=== PATIENT | female | born 1980 | race Two or more races ===

== ENCOUNTER 2025-05-01 14:04 | Emergency (ER) | payer OTHER ==
[~2025-05-01] VITALS: Ht 157.5 cm; Wt 46.7 kg
[2025-05-01 14:24] VITALS: BP 130/88; O2SAT 97
[2025-05-01] MEDS ORDERED: NEURONTIN300 MG PO (14:25)
[2025-05-01] MEDS ORDERED: DULOXETINE HCL40 MG (14:26)
[2025-05-01] MEDS ORDERED: AMBIEN CR6.25 MG (14:27)
[2025-05-01] MEDS ORDERED: ALPRAZOLAM2 M1 PO (14:27)
[2025-05-01] MEDS ORDERED: PERCOCET 5-3251 EACH (14:27)
[2025-05-01] MEDS ORDERED: MEGESTROL ACETA40 MG PO (14:27)
[2025-05-01] MEDS ORDERED: FLURANDRENOLIDE TP (14:28)
[2025-05-01] MEDS ORDERED: PEPCID AC20 MG (14:28)
[2025-05-01] MEDS ORDERED: 0.9 % SODIUM CHLORIDE 1,000 ML IV ONE (15:30)
[2025-05-01] MEDS ORDERED: ONDANSETRON HCL 2 MG/ML VIAL IV ONE (15:30)
[2025-05-01] MEDS ORDERED: FAMOTIDINE/PF 20 MG/2 ML VIAL IV ONE (15:30)
[2025-05-01] MEDS ORDERED: MORPHINE SULFATE 4 MG/ML VIAL IV ONE (15:45)
[2025-05-01] MEDS ORDERED: ONDANSETRON HCL 2 MG/ML VIAL ONE (16:06)
[2025-05-01] MEDS ORDERED: FAMOTIDINE/PF 20 MG/2 ML VIAL ONE (16:07)
[2025-05-01 16:17] LABS: BASO % 0.2 % (0.1-1.2); EOS # 0.01 (0.04-0.54); EOS % 0.2 % (0.7-7.0); LYMPH # 0.96 (1.18-3.74); LYMPH % 17.5 % (19.3-53.1); MEAN PLATELET VOLUME 11.80 fl (9.4-12.4); MONO # 0.37 (0.24-0.82); MONO % 6.7 % (4.7-12.5); NEUT # 4.14 (1.56-6.13); NEUT % 75.2 % (34.0-71.1); RED CELL DISTRIBUTION WIDTH 12.7 % (11.6-14.4)
[2025-05-01 16:20] LABS: COVID-19 AG NEGATIVE (NEGATIVE)
[2025-05-01 16:42] LABS: ALT/SGPT 12.0 U/L (12-78); AST/SGOT 12.0 U/L (15-37); BILIRUBIN TOTAL 0.64 mg/dL (0.3-1.2); BUN CREA RATIO 4.0 (7.0-25.0); CREATININE SERUM 0.79 mg/dL (0.55-1.02); GFR 79.43; GLOBULINA 4.0 G/DL (2.4-3.5); GLUCOSE FASTING 90.0 mg/dL (65-100); OSMOLALITY SERUM 274.0 MOSM/KG (275-295)
[2025-05-01 18:07] LABS: URINE APPEARANCE Clear; URINE BILIRRUBIN Negative (NEGATIVE); URINE BLOOD Negative; URINE COLOR Yellow; URINE GLUCOSE Negative (NEGATIVE); URINE KETONE Trace (NEGATIVE); URINE LEUKOCYTE Negative; URINE NITRATE Negative; URINE PROTEIN Negative (NEGATIVE); URINE UROBILINOGEN 0.2 E.U./dl
[2025-05-01 18:49] LABS: URINE EPITHELIAL CELLS 6.7 uL (0.0-38.8); URINE RBC 1.0 uL (0.0-20.8); URINE WBC 8.9 uL (0.0-23.2)
[2025-05-01 18:50] LABS: URINE BACTERIA 135.5 uL (0.0-1933); URINE CAST 0.14 uL (0.0-1.40)
[2025-05-01] MEDS ORDERED: ONDANSETRON ODT8 MG SL (20:01)
[2025-05-01] MEDS ORDERED: PEPCID AC20 MG PO (20:01)
== END 2025-05-01 21:59 ==
LOC: ER 14:04
PROVIDERS: General Practice
DX: R10.84 Generalized abdominal pain (principal); D25.9 Leiomyoma of uterus, unspecified; N88.8 Other specified noninflammatory disorders of cervix uteri; Z85.3 Personal history of malignant neoplasm of breast; Z20.822 Contact with and (suspected) exposure to COVID-19

== ENCOUNTER 2025-05-14 18:55 | Inpatient (IN) | payer OTHER ==
[~2025-05-14] VITALS: Ht 157.5 cm; Wt 45.8 kg
[~2025-05-14 18:55] MED LIST: ALPRAZOLAM2 M1 PO; AMBIEN CR6.25 MG; DULOXETINE HCL40 MG; FLURANDRENOLIDE TP; MEGESTROL ACETA40 MG PO; NEURONTIN300 MG PO; ONDANSETRON ODT8 MG SL; PEPCID AC20 MG; PEPCID AC20 MG PO; PERCOCET 5-3251 EACH
--- NOTE | 2025-05-14 19:54 | NUR ---
PACIENTE ALERTA Y ORIENTADA X 3. REFIERE 3 MUJICA CON DOLOR ABDOMINAL, VOMITOS Y DIARREAS. REFIERE SER PACIENTE DE CANCER DE SENO IZQ Y ESTA EN ESPERA DE BIOPSIA PELVICA. HOY VOMITOS X6 Y DIARREAS X 4.
[2025-05-14] MEDS ORDERED: 0.9 % SODIUM CHLORIDE 1,000 ML IV STA (20:32)
[2025-05-14] MEDS ORDERED: HALOPERIDOL LACTATE 5 MG/ML AMPUL IM STA (20:33)
[2025-05-14] MEDS ORDERED: FAMOtidine 10 MG/ML (4ML VIAL) IV PUSH STA (20:33)
[2025-05-14] MEDS ORDERED: DIPHENHYDRAMINE HCL 50 MG/ML VIAL 1ML IM STA (20:34)
[2025-05-14] MEDS ORDERED: DIPHENHYDRAMINE HCL 50 MG/ML VIAL 1ML ONE (21:00)
[2025-05-14] MEDS ORDERED: HALOPERIDOL LACTATE 5 MG/ML AMPUL ONE (21:00)
[2025-05-14] MEDS ORDERED: FAMOTIDINE/PF 20 MG/2 ML VIAL ONE (21:01)
--- NOTE | 2025-05-14 21:17 | NUR ---
SE ORIENTA A PACIENTE SOBRE TX MEDICO, REFIERE ENTENDER. SE REALIZAN MUESTRAS DE LABORATORIO BAJO MEDIDAS ASEPTICAS. SE ADMINISTRAN MEDICAMENTOS MEGHAN ORDEN MEDICA. PENDIENTE RE-EVALUACION MEDICA.
[2025-05-14 21:29] LABS: BASO % 0.1 % (0.1-1.2); EOS # 0.01 (0.04-0.54); EOS % 0.1 % (0.7-7.0); LYMPH # 0.88 (1.18-3.74); LYMPH % 12.8 % (19.3-53.1); MEAN PLATELET VOLUME 11.40 fl (9.4-12.4); MONO # 1.01 (0.24-0.82); MONO % 14.7 % (4.7-12.5); NEUT # 4.96 (1.56-6.13); NEUT % 72.0 % (34.0-71.1); RED CELL DISTRIBUTION WIDTH 11.7 % (11.6-14.4)
[2025-05-14 21:37] LABS: INR 1.08
[2025-05-14 21:47] LABS: ALT/SGPT 17.0 U/L (12-78); AST/SGOT 18.0 U/L (15-37); BILIRUBIN TOTAL 1.09 mg/dL (0.3-1.2); BUN CREA RATIO 9.0 (7.0-25.0); CREATININE SERUM 0.55 mg/dL (0.55-1.02); GFR 120.63; GLOBULINA 3.5 G/DL (2.4-3.5); GLUCOSE FASTING 80.0 mg/dL (65-100); OSMOLALITY SERUM 240.0 MOSM/KG (275-295)
[2025-05-14 21:52] LABS: URINE APPEARANCE Clear; URINE BILIRRUBIN Negative (NEGATIVE); URINE BLOOD Trace; URINE COLOR Yellow; URINE GLUCOSE Negative (NEGATIVE); URINE LEUKOCYTE Negative; URINE NITRATE Negative; URINE PROTEIN Negative (NEGATIVE); URINE UROBILINOGEN 0.2 E.U./dl
[2025-05-14 21:56] LABS: URINE BACTERIA 964.7 uL (0.0-1933); URINE EPITHELIAL CELLS 32.7 uL (0.0-38.8); URINE RBC 4.6 uL (0.0-20.8); URINE WBC 15.9 uL (0.0-23.2)
[2025-05-14 22:01] LABS: URINE CAST 0.00 uL (0.0-1.40); URINE KETONE 40 (NEGATIVE)
--- NOTE | 2025-05-15 10:34 | NUR ---
DR. MCGHEE VA A BRINDAR REEVALUACION A PACIENTE Y BLAS NO SE ENCUENTRA EN LA INSTITUCION. SE PROCEDE A LLAMAR A PACIENTE VIA TELEFONO Y BLAS NO RESPONDE. SE PROCEDE A LLAMAR AL CUARTER DE LOIZA Y LOS MISMOS [employer] COMPROMETERSE CON PASAR POR [facility]ION [facility] PARA REALIZAR LA INVESTIGACION.
[2025-05-15] MEDS ORDERED: FAMOTIDINE/PF 20 MG in 0.9 % SODIUM CHLORIDE 8 ML IV PUSH SCH (11:21)
[2025-05-15] MEDS ORDERED: 0.9 % SODIUM CHLORIDE 1,000 ML IV SCH (11:30)
[2025-05-15] MEDS ORDERED: ONDANSETRON HCL 4 MG in 0.9 % SODIUM CHLORIDE 50 ML IV PRN (11:30)
[2025-05-15] MEDS ORDERED: ACETAMINOPHEN 500 MG GEL..CAP PO PRN (11:30)
[2025-05-15 12:52] VITALS: BP 106/89; O2SAT 97
[2025-05-15 13:01] LABS: COVID-19 AG NEGATIVE (NEGATIVE)
[2025-05-15] MEDS ORDERED: DIPHENHYDRAMINE HCL 50 MG/ML VIAL 1ML IV ONE (14:30)
[2025-05-15] MEDS ORDERED: METHYLPREDNISOLONE SOD SUCC 125 MG VIAL IV ONE (14:30)
[2025-05-15 14:42] VITALS: BP 12/84; O2SAT 98
[2025-05-15] MEDS ORDERED: OxyCODONE HCL 5 MG TABLET (ROXICODONE) PO ONE (16:00)
[2025-05-15 16:02] VITALS: BP 136/78; O2SAT 99
[2025-05-15 17:03] VITALS: BP 113/72; O2SAT 97
[2025-05-16 03:02] VITALS: BP 119/72; O2SAT 97
[2025-05-16 07:02] LABS: BUN CREA RATIO 8.0 (7.0-25.0); CREATININE SERUM 0.59 mg/dL (0.55-1.02); GFR 111.24; OSMOLALITY SERUM 268.0 MOSM/KG (275-295)
[2025-05-16 07:38] LABS: GLUCOSE FASTING 50.0 mg/dL (65-100)
[2025-05-16 08:42] VITALS: BP 123/80; O2SAT 96
[2025-05-16] MEDS ORDERED: POTASSIUM CHLORIDE IN WATER 40 MEQ/100 ML PIGGYBAG IV NR (11:30)
[2025-05-16 17:44] VITALS: BP 118/70; O2SAT 97
[2025-05-17 02:50] VITALS: BP 116/75
[2025-05-17 09:09] VITALS: BP 117/75; O2SAT 98
[2025-05-17] MEDS ORDERED: INSULIN LISPRO 1,000 UNIT/10 ML UNITS SUBCUTANEO PRN (11:30)
[2025-05-17] MEDS ORDERED: DEXTROSE 50 % IN WATER 0.5 G/ML VIAL IV PRN (11:30)
[2025-05-17 18:11] VITALS: BP 130/85; O2SAT 100
[2025-05-17] MEDS ORDERED: FAMOTIDINE/PF 20 MG in 0.9 % SODIUM CHLORIDE 8 ML IV PUSH SCH (21:00)
[2025-05-17] MEDS ORDERED: ZOLPIDEM TARTRATE 10 MG TABLET PO STA (22:58)
[2025-05-18 03:35] VITALS: BP 118/82; O2SAT 100
[2025-05-18 07:23] LABS: BASO % 0.2 % (0.1-1.2); EOS # 0.05 (0.04-0.54); EOS % 1.0 % (0.7-7.0); LYMPH # 1.30 (1.18-3.74); LYMPH % 25.3 % (19.3-53.1); MEAN PLATELET VOLUME 11.70 fl (9.4-12.4); MONO # 0.75 (0.24-0.82); NEUT # 3.00 (1.56-6.13); NEUT % 58.5 % (34.0-71.1); RED CELL DISTRIBUTION WIDTH 12.7 % (11.6-14.4)
[2025-05-18 07:32] LABS: MONO % 14.6 % (4.7-12.5)
[2025-05-18 07:34] LABS: ALT/SGPT 25 U/L (12-78); AST/SGOT 40 U/L (15-37); BILIRUBIN TOTAL 0.79 mg/dL (0.3-1.2); CREATININE SERUM 0.56 mg/dL (0.55-1.02); GFR 118.15; GLOBULINA 3.0 G/DL (2.4-3.5); GLUCOSE FASTING 65 mg/dL (65-100)
[2025-05-18 07:45] LABS: BUN CREA RATIO 2 (7.0-25.0); OSMOLALITY SERUM 273 MOSM/KG (275-295)
[2025-05-18 09:14] VITALS: BP 113/77
[2025-05-18 16:19] VITALS: BP 125/78; O2SAT 99
[2025-05-18] MEDS ORDERED: ZOLPIDEM TARTRATE 10 MG TABLET PO SCH (21:00)
[2025-05-19 05:45] VITALS: BP 118/78; O2SAT 99
[2025-05-19 10:05] VITALS: BP 106/71
[2025-05-19 18:30] VITALS: BP 121/83
[2025-05-20 00:45] VITALS: BP 103/68; O2SAT 98
[2025-05-20 07:21] LABS: BUN CREA RATIO 8.0 (7.0-25.0); CREATININE SERUM 0.61 mg/dL (0.55-1.02); GFR 107.05; GLUCOSE FASTING 81.0 mg/dL (65-100); OSMOLALITY SERUM 281.0 MOSM/KG (275-295); T4 TOTAL 5.35 UG/DL (4.8-13.9); TSH 0.906 uIU/mL (0.358-3.74)
[2025-05-20 08:00] VITALS: BP 116/79; O2SAT 100
== END 2025-05-20 17:44 | DRG 71 ==
LOC: ER 18:55 → SEC-K 05-15 11:22 → MEDI 05-15 11:22
PROVIDERS: General Practice; Internal Medicine; Internal Medicine Endocrinology, Diabetes & Metabolism; ADMIT Internal Medicine; ATTEND Internal Medicine
PROC: BW21ZZZ Computerized Tomography (CT Scan) of Abdomen and Pelvis (ICD-10-PCS; principal; 2025-05-15)
PROC: BW28ZZZ Computerized Tomography (CT Scan) of Head (ICD-10-PCS; 2025-05-15)
DX: G93.41 Metabolic encephalopathy (principal); E87.1 Hypo-osmolality and hyponatremia; Z68.1 Body mass index [BMI] 19.9 or less, adult; R63.0 Anorexia; Z85.43 Personal history of malignant neoplasm of ovary; Z85.3 Personal history of malignant neoplasm of breast; F41.1 Generalized anxiety disorder

== ENCOUNTER 2025-07-04 06:25 | Emergency (ER) | payer OTHER ==
[~2025-07-04] VITALS: Ht 157.5 cm; Wt 48.1 kg
[2025-07-04] MEDS ORDERED: 0.9 % SODIUM CHLORIDE 1,000 ML IV STA (08:29)
[2025-07-04 09:46] LABS: URINE APPEARANCE Clear; URINE BILIRRUBIN Negative (NEGATIVE); URINE BLOOD Moderate; URINE COLOR Yellow; URINE GLUCOSE Negative (NEGATIVE); URINE KETONE Negative (NEGATIVE); URINE LEUKOCYTE Large; URINE NITRATE Negative; URINE PROTEIN Negative (NEGATIVE); URINE UROBILINOGEN 1.0 E.U./dl
[2025-07-04 09:50] LABS: URINE BACTERIA 1080.0 uL (0.0-1933); URINE EPITHELIAL CELLS 23.0 uL (0.0-38.8); URINE RBC 7.6 uL (0.0-20.8); URINE WBC 499.3 uL (0.0-23.2)
[2025-07-04 09:59] LABS: BASO % 0.2 % (0.1-1.2); EOS # 0.03 (0.04-0.54); EOS % 0.5 % (0.7-7.0); LYMPH # 1.45 (1.18-3.74); LYMPH % 22.9 % (19.3-53.1); MEAN PLATELET VOLUME 10.20 fl (9.4-12.4); MONO # 0.67 (0.24-0.82); MONO % 10.6 % (4.7-12.5); NEUT # 4.11 (1.56-6.13); NEUT % 64.9 % (34.0-71.1); RED CELL DISTRIBUTION WIDTH 14.3 % (11.6-14.4)
[2025-07-04 10:04] LABS: TYPE CELLS SQUAMOUS; URINE CAST 0.00 uL (0.0-1.40)
[2025-07-04 10:16] LABS: COVID-19 AG NEGATIVE (NEGATIVE)
[2025-07-04 10:59] LABS: BUN CREA RATIO 13.0 (7.0-25.0); CREATININE SERUM 0.76 mg/dL (0.55-1.02); GFR 83.06; GLUCOSE FASTING 76.0 mg/dL (65-100); OSMOLALITY SERUM 275.0 MOSM/KG (275-295)
== END 2025-07-04 13:00 | disposition home or self-care (01) ==
LOC: ER 06:26
PROVIDERS: General Practice
DX: R50.9 Fever, unspecified (principal); R19.7 Diarrhea, unspecified; Z20.822 Contact with and (suspected) exposure to COVID-19; Z91.040 Latex allergy status

== ENCOUNTER 2025-07-09 16:34 | Emergency (ER) | payer OTHER ==
[~2025-07-09] VITALS: Ht 157.5 cm; Wt 48.1 kg
[2025-07-09 16:51] VITALS: BP 119/81; O2SAT 98
[2025-07-09] MEDS ORDERED: 0.9 % SODIUM CHLORIDE 1,000 ML IV ONE (17:15)
[2025-07-09 17:42] LABS: BASO % 0.2 % (0.1-1.2); EOS # 0.01 (0.04-0.54); EOS % 0.2 % (0.7-7.0); LYMPH # 0.86 (1.18-3.74); LYMPH % 17.3 % (19.3-53.1); MEAN PLATELET VOLUME 9.70 fl (9.4-12.4); MONO # 0.56 (0.24-0.82); MONO % 11.3 % (4.7-12.5); NEUT # 3.49 (1.56-6.13); NEUT % 70.4 % (34.0-71.1); RED CELL DISTRIBUTION WIDTH 13.2 % (11.6-14.4)
[2025-07-09 18:10] LABS: INR 1.06
[2025-07-09 18:18] LABS: ALT/SGPT 23.0 U/L (12-78); AST/SGOT 10.0 U/L (15-37); BILIRUBIN TOTAL 0.36 mg/dL (0.3-1.2); BUN CREA RATIO 17.0 (7.0-25.0); CREATININE SERUM 0.75 mg/dL (0.55-1.02); GFR 84.34; GLOBULINA 3.8 G/DL (2.4-3.5); GLUCOSE FASTING 86.0 mg/dL (65-100); OSMOLALITY SERUM 275.0 MOSM/KG (275-295)
[2025-07-09 18:21] LABS: URINE APPEARANCE Clear; URINE BILIRRUBIN Negative (NEGATIVE); URINE BLOOD Large; URINE COLOR Yellow; URINE GLUCOSE Negative (NEGATIVE); URINE KETONE Trace (NEGATIVE); URINE LEUKOCYTE Moderate; URINE NITRATE Negative; URINE PROTEIN 30 (NEGATIVE); URINE UROBILINOGEN 1.0 E.U./dl
[2025-07-09 18:25] LABS: URINE BACTERIA 61.1 uL (0.0-1933); URINE EPITHELIAL CELLS 8.9 uL (0.0-38.8); URINE RBC 1414.4 uL (0.0-20.8); URINE WBC 200.4 uL (0.0-23.2)
[2025-07-09] MEDS ORDERED: POTASSIUM BICARBONATE/CIT AC 25 MEQ TABLET.EFF PO ONE (18:30)
[2025-07-09 18:48] LABS: COVID-19 AG NEGATIVE (NEGATIVE)
[2025-07-09 19:01] LABS: URINE CAST 0.14 uL (0.0-1.40)
[2025-07-09] MEDS ORDERED: CEFTRIAXONE SODIUM 1,000 MG VIAL IV ONE (19:15)
[2025-07-09] MEDS ORDERED: CEFTRIAXONE SODIUM 1,000 MG VIAL ONE (19:15)
[2025-07-09 21:48] LABS: ALT/SGPT 22.0 U/L (12-78); AST/SGOT 12.0 U/L (15-37); BILIRUBIN TOTAL 0.23 mg/dL (0.3-1.2); BUN CREA RATIO 20.0 (7.0-25.0); CREATININE SERUM 0.61 mg/dL (0.55-1.02); GFR 107.05; GLOBULINA 3.5 G/DL (2.4-3.5); GLUCOSE FASTING 102.0 mg/dL (65-100); OSMOLALITY SERUM 276.0 MOSM/KG (275-295)
[2025-07-09] MEDS ORDERED: BACTRIM DS TAB1 EACH PO (22:04)
[2025-07-09] MEDS ORDERED: PEPCID AC20 MG PO (22:04)
== END 2025-07-09 22:43 | disposition home or self-care (01) ==
LOC: ER 16:34
PROVIDERS: General Practice
DX: N39.0 Urinary tract infection, site not specified (principal); R53.1 Weakness; R00.0 Tachycardia, unspecified; E16.2 Hypoglycemia, unspecified; Z20.822 Contact with and (suspected) exposure to COVID-19; Z91.040 Latex allergy status